=== PATIENT | female | born 1945 | race Caucasian/White ===

== ENCOUNTER 2017-06-25 17:38 | Inpatient (IN) ==
[2017-06-25] MEDS ORDERED: Piperacillin/Tazobactam 3.375 GM in Water for inj. (sterile) 20 ML IVP ONE (17:49)
[2017-06-25] MEDS ORDERED: Vancomycin 1,250 MG in D5% in Water 250 ML IVPB ONE (17:49)
[2017-06-25] MEDS ORDERED: 0.9 % Sodium Chloride 1,000 ML IVC ONE (17:49)
[2017-06-25] MEDS ORDERED: Levofloxacin 750 MG/150 ML 750 MG/150 ML BAG IVPB ONE (17:49)
--- NOTE | 2017-06-25 17:58 | Emergency Department Note ---
Disposition Clinical Impression: Neutropenic fever Nausea and vomiting Qualifiers: Vomiting type: unspecified Vomiting Intractability: non-intractable Qualified Code(s): R11.2 - Nausea with vomiting, unspecified Fatigue Qualifiers: Fatigue type: unspecified Qualified Code(s): R53.83 - Other fatigue Disposition: Admitted As Inpatient Condition: Fair Time of Disposition: 20:25 General Adult HPI - General Stated complaint: Fever/Vomiting Time Seen by Provider: 06/25/17 17:41 Nursing Notes Reviewed: Yes Vital Signs Reviewed: Yes - History of Present Illness HPI Narrative: Mrs. Heredia, 72-year-old female, presents from home for evaluation of fever, nausea, vomiting 1 (bloody, nonbilious), increased fatigue with light exertion , mild dyspnea with light exertion. Symptom onset this morning. Tmax 102.1F by mouth this morning, improved with Tylenol. Currently under evaluation for Leukemia. Last WBC 1.05. Followed by the [facility] Dr. Fannie. Currently under initial work-up; no treatments or therapies initiated at this time. 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 PMH: Hypertension, hyperlipidemia, diabetes. History of breast cancer. History of uterine cancer-status post hysterectomy and chemotherapy. ROS: Positive: Fever, nausea, vomiting, fatigue, dyspnea excellent Negative: Chills, chest pains, palpitations, abdominal pains, dysuria, changes in bowel habits, headache, changes in vision, lightheadedness or vertigo - Related Data Home Medications Medication Instructions Recorded Confirmed Anastrozole [Arimidex] 1 mg PO DAILY 04/06/15 06/25/17 Aspirin Enteric Coated [Aspirin EC] 81 mg PO DAILY 04/06/15 06/25/17 Cholecalciferol (Vitamin D3) 2,000 unit PO DAILY 04/06/15 06/25/17 [Vitamin D3] GlipiZIDE XL (24 HR) [Glucotrol XL] 10 mg PO 0800 04/06/15 06/25/17 Hydrochlorothiazide 25 mg PO DAILY 04/06/15 06/25/17 Liraglutide [Victoza 2-Evans] 1.8 mg SQ DAILY 04/06/15 06/25/17 Metformin [Glucophage] 1,000 mg PO BIDWM 10/27/15 01/15/18 Simvastatin [Zocor] 40 mg PO HS 04/06/15 06/25/17 Multivit/Iron/FA/K/Herb No.244 1 each PO DAILY 05/25/17 06/25/17 [Alive Women's Energy Mv Tablet] Metoprolol XL (24 HR) Succ [Toprol 25 mg PO DAILY 06/25/17 06/25/17 XL] Allergies Allergy/AdvReac Type Severity Reaction Status Date / Time ibuprofen Allergy Unknown Gastrointestinal Verified 06/06/17 11:45 Upset Sulfa (Sulfonamide Allergy Unknown Gastrointestinal Verified 06/06/17 11:45 Antibiotics) Upset All systems ED: reviewed and negative except as stated. Review of Systems: As Per HPI Past Medical History - Past Medical History Medical history: Reports: arthritis, cancer, DVT, diabetes, hyperlipidemia, hypertension, kidney stones Surgical history: Reports: breast surgery, cancer surgery, hysterectomy, other Psychiatric history: Reports: no psych history - Social History Smoking Status: Never smoker Smokeless Tobacco Status: No Alcohol use: Reports: none Drug use: Reports: none Physical Exam Vital Signs Reviewed General: Patient is alert, oriented, and in no acute distress. HEENT: No facial asymmetry. Head is normocephalic and atraumatic. PERRLA, EOMI. Cardiovascular: Heart regular rate and rhythm without clicks, rubs, gallops, or murmurs. No JVD. PMI nondisplaced. Respiratory: Symmetric chest rise with good respiratory effort. Bilateral breath sounds are clear without wheezing, crackles, or rhonchi. Abdomen: Obese. Bowel sounds present normoactive x-4 quadrants. Abdomen is soft, nondistended, and nontender. Unable to assess organomegaly secondary to patient's body habitus. Musculoskeletal: Spontaneously moving all extremities. Neuro: Cranial nerves II through XII without gross deficit. Sensation light touch intact. Psych: Patient's affect is appropriate for situation. Course Course Narrative: Initial concern is for fever in the context of leukopenia. One month ago, patient's white count was 0.8. She had pancytopenia at that time. Patient is seen as positive by temperature and respiratory rate. In the context of her leukopenia, will proceed aggressively with empiric antibotic coverage and thorough workup. Patient's white count is 0.6. Patient has hypomagnesemia; will replace. Patient has hypokalemia; will replace. Patient is influenza negative. Calculated absolute neutrophil count is 13,000; however she is neutropenic with WBC of 600. Discussed the patient with Dr. Otero, oncology. Given the patient's pancytopenia and neutropenic fever, he is in agreement with getting the patient to hospitalist service. He recommends empiric cefepime and appear Tamiflu at this time. Discussed the patient with the admitting hospitalist, Dr. Chapman, recent except the patient to her service. We discussed current vancomycin and Zosyn as well as Dr. Garcia's recommendations for cefepime. She has no additional questions or concerns this time. I discussed the above with the patient was agreement to admission to this facility for continued evaluation and management. Neutropenic cautions are in place. Vital Signs Temperature 100.8 F H 06/25/17 17:47 Pulse Rate 98 06/25/17 17:47 Respiratory Rate 20 06/25/17 17:47 Blood Pressure 136/62 06/25/17 17:47 O2 Sat by Pulse Oximetry 97 06/25/17 17:47 Temperature 100.8 F H 06/25/17 17:47 Pulse Rate 98 06/25/17 19:15 Respiratory Rate 18 06/25/17 19:15 Blood Pressure 137/56 06/25/17 19:15 O2 Sat by Pulse Oximetry 93 06/25/17 19:15 Oxygen Delivery Oxygen Delivery Room Air Medical Decision Making - Medical Records Medical records reviewed: Yes I reviewed the patient's medical records. - Lab Data Lab results reviewed: Yes I reviewed the patient's lab results. Result diagrams: 06/25/17 18:03 06/25/17 18:03 Lab Results 06/25/17 06/25/17 06/25/17 Range/Units 18:03 18:03 18:03 WBC 0.6 L* (4.3-11.1) K/mcL RBC 2.02 L (3.82-4.97) M/mcL Hgb 7.2 L (11.5-15.4) g/dL Hct 20.2 L (35.3-44.9) % MCV 100.0 (83.0-100.0) fL MCH 35.6 H (28.0-33.3) pg MCHC 35.6 H (31.6-35.5) g/dL RDW 17.2 H (11.5-14.5) % Plt Count 94 L (140-400) K/mcL MPV 10.2 (9.4-12.4) fL Seg Neutrophils % 6.0 % Band Neutrophils % 2.0 (0-4) % Lymphocytes % 86.0 % Monocytes % 6.0 % Neutrophils # 0.1 L (1.6-8.9) K/mcL Lymphocytes # 0.5 L (0.6-4.6) K/mcL Monocytes # 0.0 (0.0-1.3) K/mcL Nucleated RBCs/100 WBC 4.8 H (0) /100 WBC Reactive Lymphocytes Present A (Not Present) Platelet Estimate Decreased L (Normal) Hypochromasia Present A (Not Present) Anisocytosis 1+ A (Not Present) Microcytosis Present A (Not Present) Macrocytosis Present A (Not Present) Ovalocytes 1+ A (Not Present) PT 12.2 H (9.4-12.1) Seconds INR 1.1 APTT 27.7 (26.0-36.0) Seconds Sodium 135 L (136-145) mEq/L Potassium 3.1 L (3.5-5.1) mEq/L Chloride 100 (98-107) mEq/L Carbon Dioxide 26 (23-29) mEq/L BUN 15 (8-23) mg/dL Creatinine 0.97 (0.60-1.20) mg/dL Est GFR ( Amer) > 60 (> 60) Est GFR (Non-Af Amer) 56 L (> 60) BUN/Creatinine Ratio 15 (6-26) Glucose 276 H (70-105) mg/dL Calculated Osmolality 291 (280-300) Lactic Acid (0.5-2.2) mmol/L Calcium 8.7 (8.6-10.3) mg/dL Phosphorus 1.6 L (2.7-4.5) mg/dL Magnesium 1.5 L (1.6-2.6) mg/dL Total Bilirubin 1.5 H (0.3-1.0) mg/dL Direct Bilirubin 0.4 H (0.0-0.2) mg/dL Indirect Bilirubin 1.1 (0.0-1.2) mg/dL AST 20 (13-39) Units/L ALT 23 (7-52) Units/L Alkaline Phosphatase 81 (34-104) Units/L Troponin I (< 0.04) ng/mL B-Natriuretic Peptide (Less than 100) pg/mL Serum Total Protein 6.4 (6.4-8.9) g/dL Albumin 3.5 (3.5-5.7) g/dL Globulin 2.9 (2.4-3.5) g/dL Albumin/Globulin Ratio 1.2 (1.1-2.2) TSH 1.042 (0.340-5.600) mcIU/mL Urine Color (Yellow) Urine Clarity (Clear) Urine pH (5.0-8.0) pH Units Ur Specific Hinckley (1.010-1.025) Urine Protein (Neg-Trace) mg/dL Urine Glucose (UA) (Normal) mg/dL Urine Ketones (Negative) mg/dL Urine Blood (Negative) Urine Nitrite (Negative) Urine Bilirubin (Negative) Urine Urobilinogen (Normal) mg/dL Ur Leukocyte Esterase (Negative) Urine Microscopic RBC (0-3) per hpf Urine Microscopic WBC (0-3) per hpf Ur Squamous Epith Cells (None-Few) per lpf Urine Bacteria (None-Few) per hpf Hyaline Casts (None-Few) per lpf Ur Culture Indicated? (NO) 06/25/17 06/25/17 06/25/17 Range/Units 18:03 18:03 18:03 WBC (4.3-11.1) K/mcL RBC (3.82-4.97) M/mcL Hgb (11.5-15.4) g/dL Hct (35.3-44.9) % MCV (83.0-100.0) fL MCH (28.0-33.3) pg MCHC (31.6-35.5) g/dL RDW (11.5-14.5) % Plt Count (140-400) K/mcL MPV (9.4-12.4) fL Seg Neutrophils % % Band Neutrophils % (0-4) % Lymphocytes % % Monocytes % % Neutrophils # (1.6-8.9) K/mcL Lymphocytes # (0.6-4.6) K/mcL Monocytes # (0.0-1.3) K/mcL Nucleated RBCs/100 WBC (0) /100 WBC Reactive Lymphocytes (Not Present) Platelet Estimate (Normal) Hypochromasia (Not Present) Anisocytosis (Not Present) Microcytosis (Not Present) Macrocytosis (Not Present) Ovalocytes (Not Present) PT (9.4-12.1) Seconds INR APTT (26.0-36.0) Seconds Sodium (136-145) mEq/L Potassium (3.5-5.1) mEq/L Chloride (98-107) mEq/L Carbon Dioxide (23-29) mEq/L BUN (8-23) mg/dL Creatinine (0.60-1.20) mg/dL Est GFR ( Amer) (> 60) Est GFR (Non-Af Amer) (> 60) BUN/Creatinine Ratio (6-26) Glucose (70-105) mg/dL Calculated Osmolality (280-300) Lactic Acid 2.0 (0.5-2.2) mmol/L Calcium (8.6-10.3) mg/dL Phosphorus (2.7-4.5) mg/dL Magnesium (1.6-2.6) mg/dL Total Bilirubin (0.3-1.0) mg/dL Direct Bilirubin (0.0-0.2) mg/dL Indirect Bilirubin (0.0-1.2) mg/dL AST (13-39) Units/L ALT (7-52) Units/L Alkaline Phosphatase (34-104) Units/L Troponin I < 0.03 (< 0.04) ng/mL B-Natriuretic Peptide 50 (Less than 100) pg/mL Serum Total Protein (6.4-8.9) g/dL Albumin (3.5-5.7) g/dL Globulin (2.4-3.5) g/dL Albumin/Globulin Ratio (1.1-2.2) TSH (0.340-5.600) mcIU/mL Urine Color (Yellow) Urine Clarity (Clear) Urine pH (5.0-8.0) pH Units Ur Specific Hinckley (1.010-1.025) Urine Protein (Neg-Trace) mg/dL Urine Glucose (UA) (Normal) mg/dL Urine Ketones (Negative) mg/dL Urine Blood (Negative) Urine Nitrite (Negative) Urine Bilirubin (Negative) Urine Urobilinogen (Normal) mg/dL Ur Leukocyte Esterase (Negative) Urine Microscopic RBC (0-3) per hpf Urine Microscopic WBC (0-3) per hpf Ur Squamous Epith Cells (None-Few) per lpf Urine Bacteria (None-Few) per hpf Hyaline Casts (None-Few) per lpf Ur Culture Indicated? (NO) 06/25/17 Range/Units 19:10 WBC (4.3-11.1) K/mcL RBC (3.82-4.97) M/mcL Hgb (11.5-15.4) g/dL Hct (35.3-44.9) % MCV (83.0-100.0) fL MCH (28.0-33.3) pg MCHC (31.6-35.5) g/dL RDW (11.5-14.5) % Plt Count (140-400) K/mcL MPV (9.4-12.4) fL Seg Neutrophils % % Band Neutrophils % (0-4) % Lymphocytes % % Monocytes % % Neutrophils # (1.6-8.9) K/mcL Lymphocytes # (0.6-4.6) K/mcL Monocytes # (0.0-1.3) K/mcL Nucleated RBCs/100 WBC (0) /100 WBC Reactive Lymphocytes (Not Present) Platelet Estimate (Normal) Hypochromasia (Not Present) Anisocytosis (Not Present) Microcytosis (Not Present) Macrocytosis (Not Present) Ovalocytes (Not Present) PT (9.4-12.1) Seconds INR APTT (26.0-36.0) Seconds Sodium (136-145) mEq/L Potassium (3.5-5.1) mEq/L Chloride (98-107) mEq/L Carbon Dioxide (23-29) mEq/L BUN (8-23) mg/dL Creatinine (0.60-1.20) mg/dL Est GFR ( Amer) (> 60) Est GFR (Non-Af Amer) (> 60) BUN/Creatinine Ratio (6-26) Glucose (70-105) mg/dL Calculated Osmolality (280-300) Lactic Acid (0.5-2.2) mmol/L Calcium (8.6-10.3) mg/dL Phosphorus (2.7-4.5) mg/dL Magnesium (1.6-2.6) mg/dL Total Bilirubin (0.3-1.0) mg/dL Direct Bilirubin (0.0-0.2) mg/dL Indirect Bilirubin (0.0-1.2) mg/dL AST (13-39) Units/L ALT (7-52) Units/L Alkaline Phosphatase (34-104) Units/L Troponin I (< 0.04) ng/mL B-Natriuretic Peptide (Less than 100) pg/mL Serum Total Protein (6.4-8.9) g/dL Albumin (3.5-5.7) g/dL Globulin (2.4-3.5) g/dL Albumin/Globulin Ratio (1.1-2.2) TSH (0.340-5.600) mcIU/mL Urine Color Yellow (Yellow) Urine Clarity Clear (Clear) Urine pH 6.0 (5.0-8.0) pH Units Ur Specific Hinckley > 1.030 H (1.010-1.025) Urine Protein 100 H (Neg-Trace) mg/dL Urine Glucose (UA) >=1000 H (Normal) mg/dL Urine Ketones 15 H (Negative) mg/dL Urine Blood Negative (Negative) Urine Nitrite Negative (Negative) Urine Bilirubin Negative (Negative) Urine Urobilinogen Normal (Normal) mg/dL Ur Leukocyte Esterase Negative (Negative) Urine Microscopic RBC 0-3 (0-3) per hpf Urine Microscopic WBC 0-3 (0-3) per hpf Ur Squamous Epith Cells Many H (None-Few) per lpf Urine Bacteria None Seen (None-Few) per hpf Hyaline Casts None Seen (None-Few) per lpf Ur Culture Indicated? NO (NO) - Radiology Data Radiology results reviewed: Yes I reviewed the patient's radiology results. - EKG Data EKG #1 EKG attestation: Yes I reviewed and interpreted this EKG. EKG results narrative: EKG dated 06/30/1816: 55 interpreted as sinus rhythm with a rate of 97. Normal intervals appear 134, QRS 80, QT/QTC 326/81. Normal axis. Nonspecific ST-T changes. Inverted P wave in V1 and V2 present on comparison EKG dated 06/2012; no acute ischemic changes a comparison. Critical Care Time Critical Care Time: Yes Total Critical Care Time: 45 Attestation: Critical care performed: Time is exclusive of separately billable procedures. Time includes: direct patient care, patient reassessment, coordination of patient care, interpretation of data (laboratory data, radiology data, and respiratory data), review of patient's medical records, medical consultation and documentation of patient care. Procedures included in critical care time: Procedures excluded from critical care time: Attestation Statement - Attestation Attestation: I, Aguilar Toussaint DO, examined this patient [id number] and my medical decision-making was reviewed with Dr. William Rayo, Resident Physician. I agree with the documented findings, disposition and treatment plan as described except to the extent set forth below. Please see my progress notes for details. 72-year-old female with known history of uterine cancer. Patient was diagnosed treated with surgical hysterectomy and chemotherapy within the last year. She has chronic leukopenia and borderline pancytopenia based on lab review. She confirms a fever of 102.1 at home. Patient is concerning for possible neutropenic fever of unknown etiology at this point. She has had nausea but denies any productive cough or sputum abdominal pain and burning with urination or otherwise infectious etiology symptoms. Patient will be aggressively treated with fluid hydration and antibiotic regimen started this time she will have blood cultures and urinalysis and chest x-ray ordered immediately along with EKG. She will also have evaluation of liver function testing. She will CT imaging of the head CT angiography of the chest and CT with IV contrast of the abdomen once wanted by laboratory workup. Patient and the family about informed. Influenza swab will be collected. Clinical presentation is otherwise unremarkable. Patient is resting in the bed her vital signs are stable. She is febrile at 100.8 here in the emergency room. She is alert she is oriented she is speaking in full sentences. She does not appear to be in any distress and does not have any focal signs of neurologic deficit or symptoms. Lungs are clear heart is regular abdomen soft nontender nondistended with no guarding no rigidity and no peritoneal like symptoms. She has no signs of petechial lesions rashes or breakdown of the skin at this point. The daughter did say that on her posterior aspect of her back with the bone marrow biopsy she does have some redness according to the family will evaluate to make sure there is no signs of fluctuant abscess. Disposition will most likely readmission after consultation placed out to the on-call oncologist as well as workup and imaging modalities are completed. Patient is comfortable with this point. Physical exam completed and unremarkable. See detailed documentation of his physical exam, medical intervention, medical decision-making, disposition and the resident physician's note. 1999 CT scan of the chest and abdomen are still pending. CT of the head is still pending. Patient has been stable throughout the entire course of care here. Consultation placed with the on-call oncologist Dr. Otero, the recommended treating such that the patient has [place]. [place] [id number]. Patient is out of them provided with vancomycin, Zosyn, Levaquin. They recommended adding on cefepime. We did not give Zosyn. We continued with scheduled treatment. Patient second IV placed just for IV access secondary to multiple antibiotics. Otherwise patient is stable. Admission process will be completed. Family informed. Approximately 45 minutes of critical care was applied to this patient's treatment course
[2017-06-25 18:13] LABS: Mean Platelet Volume 10.2 fL (9.4-12.4); Red Cell Distribution Width 17.2 % (11.5-14.5)
[2017-06-25 18:15] LABS: Hematocrit 20.2 % (35.3-44.9); Mean Corpuscular HGB Conc 35.6 g/dL (31.6-35.5); Mean Corpuscular Hemoglobin 35.6 pg (28.0-33.3); Nucleated Red Blood Cells 4.8 /100 WBC (0); Red Blood Count 2.02 M/mcL (3.82-4.97)
[2017-06-25 18:29] LABS: Alanine Aminotransferase 23 Units/L (7-52); Albumin 3.5 g/dL (3.5-5.7); Albumin/Globulin Ratio 1.2 (1.1-2.2); Alkaline Phosphatase 81 Units/L (34-104); Aspartate Amino Transferase 20 Units/L (13-39); BUN/Creatinine Ratio 15 (6-26); Bilirubin,Direct 0.4 mg/dL (0.0-0.2); Bilirubin,Indirect 1.1 mg/dL (0.0-1.2); Bilirubin,Total 1.5 mg/dL (0.3-1.0); Blood Urea Nitrogen 15 mg/dL (8-23); Calcium 8.7 mg/dL (8.6-10.3); Carbon Dioxide 26 mEq/L (23-29); Chloride 100 mEq/L (98-107); Globulin 2.9 g/dL (2.4-3.5); Glucose 276 mg/dL (70-105); Magnesium 1.5 mg/dL (1.6-2.6); Osmolality,Calculated 291 (280-300); Phosphorous 1.6 mg/dL (2.7-4.5); Potassium 3.1 mEq/L (3.5-5.1); Sodium 135 mEq/L (136-145); Total Protein 6.4 g/dL (6.4-8.9); eGFR For African Americans > 60 (> 60); eGFR For Non-African Americans 56 (> 60)
[2017-06-25 18:32] LABS: INR 1.1; Prothrombin Time 12.2 Seconds (9.4-12.1)
[2017-06-25 18:35] LABS: Activated Partial Thrombo Time 27.7 Seconds (26.0-36.0)
[2017-06-25 18:41] LABS: Hemoglobin 7.2 g/dL (11.5-15.4); Platelet Count 94 K/mcL (140-400)
[2017-06-25] MEDS ORDERED: Ondansetron 4 MG/2 ML VIAL IVP ONE (18:44)
[2017-06-25 18:55] LABS: Anisocytosis 1+ (Not Present); Lymphocytes # 0.5 K/mcL (0.6-4.6); Macrocytosis Present (Not Present); Microcytosis Present (Not Present); Neutrophils # 0.1 K/mcL (1.6-8.9); Reactive Lymphocytes Present (Not Present)
[2017-06-25 18:57] LABS: Hypochromasia Present (Not Present); Ovalocytes 1+ (Not Present)
[2017-06-25 18:58] LABS: Platelet Estimate Decreased (Normal)
[2017-06-25 19:10] LABS: Thyroid Stimulating Hormone 1.042 mcIU/mL (0.340-5.600)
[2017-06-25 19:27] LABS: Bilirubin,Urine Negative (Negative); Blood,Urine Negative (Negative); Clarity,Urine Clear (Clear); Color,Urine Yellow (Yellow); Glucose,Urine (UA) >=1000 mg/dL (Normal); Ketones,Urine 15 mg/dL (Negative); Leukocyte Esterase,Urine Negative (Negative); Nitrite,Urine Negative (Negative); Protein,Urine 100 mg/dL (Neg-Trace); Specific Gravity,Urine > 1.030 (1.010-1.025); Urobilinogen,Urine Normal (Normal)
[2017-06-25 19:29] LABS: Bacteria,Urine None Seen per hpf (None-Few); Hyaline Casts,Urine None Seen per lpf (None-Few); RBC,Urine 0-3 per hpf (0-3); Squamous Epithelial Cell,Urine Many per lpf (None-Few); WBC,Urine 0-3 per hpf (0-3)
[2017-06-25] MEDS ORDERED: *HR* HYDROcodone/Acet 5/325 mg TABLET PO PRN (20:49)
[2017-06-25] MEDS ORDERED: *HR* Morphine 2 MG/ML SYRINGE IVP PRN (20:49)
[2017-06-25] MEDS ORDERED: Ondansetron 4 MG/2 ML VIAL IVP PRN (20:49)
[2017-06-25] MEDS ORDERED: Naloxone 0.4 MG/ML INJ IVP PRN (20:49)
[2017-06-25] MEDS ORDERED: *HR* Dextrose 50 % in Water (Syg) 50 ML SYRINGE IVP PRN (20:53)
[2017-06-25] MEDS ORDERED: D5% in Water 1,000 ML IVC PRN (20:53)
[2017-06-25] MEDS ORDERED: Dextrose Gel 15 GM/37.5 ML TUBE PO PRN ×2 (20:53)
[2017-06-25] MEDS ORDERED: Insulin LISPRO 300 UNITS/3 ML VIAL SQ SCH (21:00)
[2017-06-25] MEDS: 0.9 % Sodium Chloride 1,000 ML IVC SCH (22:11)
[2017-06-25 23:35] LABS: Adenovirus Not Detected (Not Detect); Bordetella Pertussis Not Detected (Not Detect); Chlamydophila pneumoniae Not Detected (Not Detect); Coronavirus 229E Not Detected (Not Detect); Coronavirus HKU1 Not Detected (Not Detect); Coronavirus NL63 Not Detected (Not Detect); Coronavirus OC43 Not Detected (Not Detect); Human Metapneumovirus Not Detected (Not Detect); Human Rhinovirus/Enterovirus Not Detected (Not Detect); Influenza A Subtype 2009 H1 Not Detected (Not Detect); Influenza A Untypeable Not Detected (Not Detect); Influenza B Not Detected (Not Detect); Mycoplasma pneumoniae Not Detected (Not Detect); Parainfluenza Virus 1 Not Detected (Not Detect); Parainfluenza Virus 2 Not Detected (Not Detect); Parainfluenza Virus 3 Not Detected (Not Detect); Parainfluenza Virus 4 Not Detected (Not Detect); Respiratory Syncytial Virus Not Detected (Not Detect)
--- NOTE | 2017-06-26 00:05 | Internal Med History&Physical ---
Date of Encounter: 06/25/17 Time of Encounter: 20:45 Assessment and Plan (1) Neutropenic fever Current visit: Yes Status: Acute Will continue broad spectrum IV abx (Vancomycin and Cefepime) f/u blood cultures CXR/UA negative for any infectious etiology Acetaminophen prn fever closely monitor neutropenic precautions Oncology evaluation requested (2) Pancytopenia Current visit: Yes Status: Acute secondary to underlying malignancy continue to closely monitor Transfuse for Hgb<7 closely monitor PLT count SCD for dvt ppx (3) Leukemia Current visit: Yes Status: Chronic oncology evaluation requested Qualifiers: Leukemia type: unspecified Leukemia Active/Remission status: without remission Qualified Code(s): C95.90 - Leukemia, unspecified not having achieved remission (4) CAD (coronary artery disease) Current visit: No Status: Chronic no signs of angina present continue home meds given complains of exertional dyspnea, will obtain 2D echo Qualifiers: Coronary Disease-Associated Artery/Lesion type: andreafski artery [facility] vs. transplanted heart: andreafski heart Associated angina: without angina Qualified Code(s): I25.10 - Atherosclerotic heart disease of andreafski coronary artery without angina pectoris (5) Diabetes mellitus type II, non insulin dependent Current visit: No Status: Chronic hold oral antihyperglycemic agents sliding scale insulin algorithm monitor FS and BG ADA diet (6) DVT prophylaxis Current visit: No Status: Acute SCD (7) HLD (hyperlipidemia) Current visit: No Status: Chronic continue home meds Qualifiers: Hyperlipidemia type: unspecified Qualified Code(s): E78.5 - Hyperlipidemia , unspecified (8) Obesity (BMI 30-39.9) Current visit: No Status: Chronic (9) Hypertension Current visit: Yes Status: Acute BP within acceptable range continue home medications Qualifiers: Hypertension type: essential hypertension Qualified Code(s): I10 - Essential (primary) hypertension Internal Medicine - H&P: HPI Chief complaint: generalized weakness, fever Admitted From: Home Plans for Post Hospital Care: Home History of present illness: Ms. Heredia is a 72 year old female with PMH Of AML, breast ca/endometrial ca s/p chemotherapy in October 2015, DM, HTN, HLD, CAD who presented to the ER for worsening generalized weakness, exertional dyspnea, and fever. She reports of having fevers for the last two days along with worsening generalized weakness. Reports of having exertional dyspnea for the last few weeks. Denies any cough, runny nose, no ill contacts. Upon arrival to the ER, she was noted to be pancytopenic and a Tmax of 100.8. She was started on broad spectrum IV abx in the ER. She is currently resting in bed and reports of feeling weak but no shortness of breath at rest. Pt has been afebrile after receiving acetaminophen in the ER. Oncology has been consulted by the ER physician. Social history: never smoker Past Med Surg Social Fam HX - Past Medical History Medical history: arthritis, cancer, DVT, diabetes, hyperlipidemia, hypertension , kidney stones Psychiatric history: no psych history - Past Surgical History Surgical History: breast surgery, cancer surgery, hysterectomy, other - Social History Smoking Status: Never smoker Smokeless Tobacco Status: No Alcohol use: none Drug use: none - Family History Mother Living Status: Hx Family Cancer: Yes (Uterine Cancer) Father Living Status: Hx Family Cardiac Disorders: Yes Hx Family Cancer: Yes (Lung cancer) Internal Medicine - H&P: Meds Anastrozole [Arimidex] 1 mg PO DAILY 04/06/15 [History] Aspirin Enteric Coated [Aspirin EC] 81 mg PO DAILY 04/06/15 [History] Cholecalciferol (Vitamin D3) [Vitamin D3] 2,000 unit PO DAILY 04/06/15 [History] GlipiZIDE XL (24 HR) [Glucotrol XL] 10 mg PO 0800 04/06/15 [History] Hydrochlorothiazide 25 mg PO DAILY 04/06/15 [History] Liraglutide [Victoza 2-Evans] 1.8 mg SQ DAILY 04/06/15 [History] Metformin [Glucophage] 1,000 mg PO BIDWM 04/06/15 [History] Simvastatin [Zocor] 40 mg PO HS 04/06/15 [History] Multivit/Iron/FA/K/Herb No.244 [Alive Women's Energy Mv Tablet] 1 each PO DAILY 05/25/17 [History] Metoprolol XL (24 HR) Succ [Toprol XL] 25 mg PO DAILY 06/25/17 [History] 3 Allergy/AdvReac Type Severity Reaction Status Date / Time ibuprofen Allergy Unknown Gastrointestinal Verified 06/06/17 11:45 Upset Sulfa (Sulfonamide Allergy Unknown Gastrointestinal Verified 06/06/17 11:45 Antibiotics) Upset All Systems PM: A 10-system review of systems was performed and is negative for pertinent findings except as documented above in the HPI. - Constitutional Constitutional: as per HPI - Constitutional Vitals: Temp Pulse Resp BP Pulse Ox 98.1 F 86 17 107/61 97 06/25/17 23:36 06/25/17 23:36 06/25/17 23:36 06/25/17 23:36 06/25/17 23:36 General appearance: Present: cooperative, A&O X 3, pleasant, no acute distress, obese, answers questions appropriately - Head Head exam: Present: atraumatic, normocephalic - Eye Eye exam: Present: conjuntiva pink, sclera anicteric - Respiratory Respiratory exam: Present: CTAB. Absent: respiratory distress, wheezes - Cardiovascular Cardiovascular exam: Present: RRR, +S1, +S2. Absent: diastolic murmur, gallop, rubs, systolic murmur - GI/Abdominal GI/Abdominal exam: Present: normal bowel sounds, soft, no peritoneal signs. Absent: distended, tenderness - Extremities Exam Extremities exam: Present: warm, radial pulses palpable and symmetrical. Absent : calf tenderness, cyanotic, pedal edema - Neurological Exam Neurological exam: Present: alert, oriented X3 Internal Med - H&P Results - Labs CBC & Chem 7: 06/25/17 18:03 06/25/17 18:03
[2017-06-26] MEDS: Cefepime HCl 1,000 MG in Water for inj. (sterile) 20 ML 10 ML IVP SCH ×2 (00:28→09:21)
[2017-06-26 05:34] LABS: Eosinophils % 0.9 %; Hemoglobin 6.1 g/dL (11.5-15.4)
[2017-06-26 05:35] LABS: Hematocrit 17.1 % (35.3-44.9); Immature Granulocytes % 8.8 % (0-4); Lymphocytes # 0.6 K/mcL (0.6-4.6); Lymphocytes % 54.9 %; Mean Corpuscular HGB Conc 35.7 g/dL (31.6-35.5); Mean Corpuscular Hemoglobin 35.9 pg (28.0-33.3); Mean Corpuscular Volume 100.6 fL (83.0-100.0); Mean Platelet Volume 10.7 fL (9.4-12.4); Monocytes # 0.3 K/mcL (0.0-1.3); Monocytes % 27.4 %; Neutrophils # 0.1 K/mcL (1.6-8.9); Nucleated Red Blood Cells 3.5 /100 WBC (0); Red Cell Distribution Width 17.3 % (11.5-14.5)
[2017-06-26 05:41] LABS: Platelet Count 80 K/mcL (140-400)
[2017-06-26 05:53] LABS: Magnesium 2.2 mg/dL (1.6-2.6); Phosphorous 2.8 mg/dL (2.7-4.5)
[2017-06-26 06:11] LABS: Anisocytosis 2+ (Not Present); Macrocytosis Present (Not Present); Platelet Estimate Decreased (Normal); Poikilocytosis 1+ (Not Present); Polychromasia 1+ (Not Present); Reactive Lymphocytes Present (Not Present)
[2017-06-26] MEDS ORDERED: Anastrozole 1 MG TABLET PO SCH (09:00)
[2017-06-26] MEDS ORDERED: Aspirin Enteric Coated 81 MG Tablet PO SCH (09:00)
[2017-06-26] MEDS ORDERED: (Liraglutide [Victoza 2-Pak] 1.8 MG) SQ SCH (09:00)
[2017-06-26] MEDS ORDERED: Metoprolol XL (24 HR) Succ 25 MG TAB.ER.24H PO SCH (09:00)
[2017-06-26] MEDS ORDERED: Oseltamivir Phosphate 30 MG CAPSULE PO SCH (09:00)
[2017-06-26] MEDS ORDERED: Cholecalciferol (D-3) 1,000 UNIT TABLET PO SCH (09:00)
[2017-06-26] MEDS ORDERED: Multivit/Ca/Min/Fe/FA 1 TAB TABLET PO SCH (09:00)
[2017-06-26] MEDS ORDERED: hydroCHLOROthiazide 25 MG TABLET PO SCH (09:00)
[2017-06-26] MEDS: 0.9 % Sodium Chloride 1,000 ML IVC SCH (09:22)
[2017-06-26] MEDS: Insulin LISPRO 300 UNITS/3 ML VIAL SQ SCH ×3 (09:24→16:31)
[2017-06-26] MEDS ORDERED: Vancomycin 1,250 MG in D5% in Water 250 ML IVPB SCH (10:00)
--- NOTE | 2017-06-26 11:13 | Electrocardiograph Report ---
[address] [place] [address] Test Date: 2017-06-25 Pat Name: Rut Heredia Department: 104 Room: 3A42 Gender: F Consolidator: : 1945 Requested By: William Rayo Order Number: [id number] Reading MD: Arcadio Hernandez MD Measurements Intervals Rex Rate: 97 P: 64 MO: 134 QRS: 24 QRSD: 80 T: 40 QT: 326 QTc: 381 Interpretive Statements SINUS RHYTHM LEFT ATRIAL ENLARGEMENT Electronically Signed On 06-26-2017 11:11:34 EST by Arcadio Hernandez MD
[2017-06-26 12:04] LABS: Hematocrit 17.7 % (35.3-44.9); Hemoglobin 6.3 g/dL (11.5-15.4)
[2017-06-26 15:00] LABS: BUN/Creatinine Ratio 13 (6-26); Blood Urea Nitrogen 11 mg/dL (8-23); Calcium 8.2 mg/dL (8.6-10.3); Carbon Dioxide 27 mEq/L (23-29); Chloride 107 mEq/L (98-107); Glucose 196 mg/dL (70-105); Osmolality,Calculated 293 (280-300); Potassium 3.5 mEq/L (3.5-5.1); Sodium 139 mEq/L (136-145); eGFR For African Americans > 60 (> 60); eGFR For Non-African Americans > 60 (> 60)
[2017-06-26 15:38] VITALS: BP 114/68
--- NOTE | 2017-06-26 15:42 | Oncology Inp Consult Note ---
<Bessy George - Last Filed: 06/26/17 16:44> Date of Encounter: 06/26/17 Time of Encounter: 13:00 Assessment and Plan (1) Leukemia Status: Chronic Assessment and plan: BM bx--by flow numerous blasts consistent with ac leukemia, immunophenotype matching APL, not typical morphology-FISH (15;17) awaited. Patient of Dr. Llamas, referred to Dr. Toro at [facility] for AML management and further work up. She attended first appointment with Dr. Toro last week. She has recently been accepted as appropriate candidate for [facility] clinical trial study with Vero. Dr. Otero has discussed transfer to [facility], Dr. Fannie Toro has accepted transfer. Currently awaiting bed placement, [facility] will notify unit when bed available. Discussed transfer with Dr. Middleton, attending, who is aware of plan and will assist with transfer. May hold off on PRBC transfusion, pending her transfer to [facility] so as to not hold up her transfer. Shall her transfer some reason not happen for any extended period of time with no beds available, she may receive Leukoreduced and Irradiated PRBC. Admitted with Neutropenic Fever, pancytopenic, WBC 1.1, hgb 6.3, platelets 80, neutrophil 0.1. Chest CTA, Head CT no acute abnormality. No source of infection identified at this time. Treating with broad spectrum ATB, cefepime/vanco. Please refer to Dr. Otero's attending attestation below for further details. Qualifiers: Leukemia type: unspecified Leukemia Active/Remission status: without remission Qualified Code(s): C95.90 - Leukemia, unspecified not having achieved remission - Data of Consult Patient: known to practice within the last 3 years Consult date: 06/26/17 Requesting Physician: Yovany Middleton [facility] Consult Narrative Reason for consult: AML History of present illness: Ms. Heredia is a 72 year old female with past medical history significant for AML , breast ca/endometrial ca s/p chemotherapy in October 2015, DM, HTN, HLD, CAD. Patient of Dr. Llamas, recently referred to Dr. Fannie Toro at [facility] for AML management and further work up. Presented to ER for weakness, exertional dyspnea, and fever for 2 days Tmax 100.8 in ER, Tmax 102.1 prior to presentation. Admitted with Neutropenic Fever, pancytopenic, WBC 1.1, hgb 6.3, platelets 80, neutrophil 0.1. Lactic acid normal , BP stable. On Vancomycin/cefepime. Chest CTA, Head CT no acute abnormality. Blood cultures pending. Influenza negative. Past Med Surg Social Fam HX - Past Medical History Medical history: arthritis, cancer, DVT, diabetes, hyperlipidemia, hypertension , kidney stones Psychiatric history: no psych history - Past Surgical History Surgical History: breast surgery, cancer surgery, hysterectomy, other - Social History Smoking Status: Never smoker Smokeless Tobacco Status: No Alcohol use: none Drug use: none - Family History Mother Living Status: Hx Family Cancer: Yes (Uterine Cancer) Father Living Status: Hx Family Cardiac Disorders: Yes Hx Family Cancer: Yes (Lung cancer) Medications and Allergies Anastrozole [Arimidex] 1 mg PO DAILY 04/06/15 [History] Aspirin Enteric Coated [Aspirin EC] 81 mg PO DAILY 04/06/15 [History] Cholecalciferol (Vitamin D3) [Vitamin D3] 2,000 unit PO DAILY 04/06/15 [History] GlipiZIDE XL (24 HR) [Glucotrol XL] 10 mg PO 0800 04/06/15 [History] Hydrochlorothiazide 25 mg PO DAILY 04/06/15 [History] Liraglutide [Victoza 2-Evans] 1.8 mg SQ DAILY 04/06/15 [History] Metformin [Glucophage] 1,000 mg PO BIDWM 04/06/15 [History] Simvastatin [Zocor] 40 mg PO HS 04/06/15 [History] Multivit/Iron/FA/K/Herb No.244 [Alive Women's Energy Mv Tablet] 1 each PO DAILY 05/25/17 [History] Metoprolol XL (24 HR) Succ [Toprol Xl] 25 mg PO DAILY 06/25/17 [History] 3 Allergy/AdvReac Type Severity Reaction Status Date / Time ibuprofen Allergy Unknown Gastrointestinal Verified 06/06/17 11:45 Upset Sulfa (Sulfonamide Allergy Unknown Gastrointestinal Verified 06/06/17 11:45 Antibiotics) Upset Constitutional: Present: anorexia, chills, fatigue, fever(s), weakness Cardiovascular: Absent: chest pain, palpitations Respiratory: Present: cough, dyspnea Gastrointestinal: Absent: abdominal pain, nausea, vomiting Genitourinary: Absent: dysuria, hematuria Musculoskeletal: Present: muscle weakness. Absent: numbness, tingling Integumentary: Absent: wounds Neurological: Absent: confusion, loss of vision Hematologic/Lymphatic: Absent: easy bleeding, lymphadenopathy Oncology - Exam - Constitutional Vitals: Temp Pulse Resp BP Pulse Ox 98.5 F 85 14 114/68 95 06/26/17 15:37 06/26/17 15:37 06/26/17 15:37 06/26/17 15:37 06/26/17 15:37 General appearance: cooperative, no acute distress, no febrile Exam: last fever recorded 24 hours ago - Head Head exam: Present: atraumatic - Respiratory Respiratory exam: Present: decreased breath sounds, CTAB - Cardiovascular Cardiovascular exam: Present: RRR, +S1, +S2 - GI/Abdominal GI/Abdominal exam: Present: normal bowel sounds, soft. Absent: tenderness - Extremities Exam Extremities exam: Absent: calf tenderness, pedal edema - Neurological Exam Neurological exam: Present: alert, oriented X3, strengths equal and symetr throughout. Absent: no focal deficits - Psychiatric Psychiatric exam: Present: normal affect, normal mood - Skin Skin exam: Present: pallor, warm Oncology - Results Labs: Short CBC 06/26/17 06/26/17 Range/Units 05:18 11:55 WBC 1.1 L D (4.3-11.1) K/mcL Hgb 6.1 L 6.3 L (11.5-15.4) g/dL Hct 17.1 L 17.7 L (35.3-44.9) % Plt Count 80 L (140-400) K/mcL Neutrophils # 0.1 L (1.6-8.9) K/mcL BMP 06/26/17 14:30 Sodium 139 Potassium 3.5 Chloride 107 Carbon Dioxide 27 BUN 11 Creatinine 0.88 Glucose 196 H Calcium 8.2 L Consult Discharge Plan - Plan Referrals: Anusha Wilcox MD [Primary Care Provider] - <Fortino Otero - Last Filed: 06/26/17 21:44> Date of Encounter: 06/26/17 - Data of Consult Requesting Physician: Yovany Middleton Primary Care Provider: Anusha Hoffman - Consult Narrative History of present illness: Ms. Heredia is a 72 year old female Oncology - Exam - Constitutional Vitals: Temp Pulse Resp BP Pulse Ox 98.5 F 85 14 114/68 95 06/26/17 15:37 06/26/17 15:37 06/26/17 15:37 06/26/17 15:37 06/26/17 15:37 Oncology - Results Labs: Short CBC 06/26/17 06/26/17 Range/Units 05:18 11:55 WBC 1.1 L D (4.3-11.1) K/mcL Hgb 6.1 L 6.3 L (11.5-15.4) g/dL Hct 17.1 L 17.7 L (35.3-44.9) % Plt Count 80 L (140-400) K/mcL Neutrophils # 0.1 L (1.6-8.9) K/mcL BMP 06/26/17 14:30 Sodium 139 Potassium 3.5 Chloride 107 Carbon Dioxide 27 BUN 11 Creatinine 0.88 Glucose 196 H Calcium 8.2 L - Attending Attestation I examined this patient and my medical decision-making was reviewed with the Advanced Practice Nurse. I agree with the documented findings, disposition and treatment plan as described except to the extent set forth below. She was admitted with neutropenia in setting of recently diagnosed therapy-associated AML. She has defervesced and cultures remain sterile. I have d/w Dr. Toro at [facility], and she has agreed to accept the patient in transfer to complete enrollment and possibly expedite treatment on the BEAT-AML study. Will hold on tranfusion for now.
--- NOTE | 2017-06-26 17:08 | Discharge Summary ---
Date of Encounter: 06/26/17 Time of Encounter: 11:00 - Discharge Diagnosis (1) Neutropenic fever Priority: Primary Status: Acute (2) Leukemia Priority: Primary Status: Chronic Qualifiers: Leukemia type: unspecified Leukemia Active/Remission status: without remission Qualified Code(s): C95.90 - Leukemia, unspecified not having achieved remission - Discharge Medications Home Medications: Anastrozole [Arimidex] 1 mg PO DAILY 04/06/15 [History] Aspirin Enteric Coated [Aspirin EC] 81 mg PO DAILY 04/06/15 [History] Cholecalciferol (Vitamin D3) [Vitamin D3] 2,000 unit PO DAILY 04/06/15 [History] GlipiZIDE XL (24 HR) [Glucotrol XL] 10 mg PO 0800 04/06/15 [History] Hydrochlorothiazide 25 mg PO DAILY 04/06/15 [History] Liraglutide [Victoza 2-Evans] 1.8 mg SQ DAILY 04/06/15 [History] Metformin [Glucophage] 1,000 mg PO BIDWM 04/06/15 [History] Simvastatin [Zocor] 40 mg PO HS 04/06/15 [History] Multivit/Iron/FA/K/Herb No.244 [Alive Women's Energy Mv Tablet] 1 each PO DAILY 05/25/17 [History] Metoprolol XL (24 HR) Succ [Toprol Xl] 25 mg PO DAILY 06/25/17 [History] Allergies/Adverse Reactions: 3 Allergy/AdvReac Type Severity Reaction Status Date / Time ibuprofen Allergy Unknown Gastrointestinal Verified 06/06/17 11:45 Upset Sulfa (Sulfonamide Allergy Unknown Gastrointestinal Verified 06/06/17 11:45 Antibiotics) Upset Procedures/tests Complete & Pending: Procedures Performed prior 72 hours Category Date Time Status EV echocardiogram Stat Y 06/26/17 00:18 Completed Date of admission: 06/25/17 20:49 Primary care physician: Anusha Hoffman Consults: 06/25/17 20:54 Consult to Pastoral Services [CONS] Routine Comment: 06/26/17 09:07 Consult to Oncology Hematology [CONS] Routine Consulting Provider: Tish Pascual Reason for Consult: aml and brest ca Call Completed: No - Patient Status Disposition: Transfer Critical Access Hosp Condition: Fair - Discharge Instructions Follow Up With: Anusha Wilcox MD [Primary Care Provider] - Forms: ED Satisfaction Letter Hospital course: Patient is a 72-year-old female with past medical history significant for AML, breast ca/endometrial ca s/p chemotherapy in October 2015, DM, HTN, HLD and CAD who presented to the ER on 06/25/17 for worsening generalized weakness, exertional dyspnea, and fever. She reported of having fevers for the last two days along with worsening generalized weakness in addition of having exertional dyspnea for the last few weeks. Upon arrival to the ER, she was noted to be pancytopenic and a Tmax of 100.8. She was started on broad spectrum IV abx in the ER. Patient was admitted to the medical floor for further management. Metabolic alkalosis/oncologist consulted and it was noted that patients bone marrow biopsy showed numerous blast consistent with acute leukemia. Patient of Dr. Llamas, referred to Dr. Toro at [facility] for AML management and further work up. She attended first appointment with Dr. Toro last week. She has recently been accepted as appropriate candidate for [facility] clinical trial study with Vero. Hematology/oncology with recommendations for transfer to the [facility]; Dr. Fannie Toro has accepted transfer. Will hold off on PRBC transfusion, pending her transfer to [facility] so as to not hold up her transfer. If there is a delay in transfer patient may receive Leukoreduced and Irradiated PRBC per recommendations. - Time Spent with Patient Total time spent providing and/or coordinating discharge services: Less than 30 minutes - Constitutional Vitals: Temp Pulse Resp BP Pulse Ox 98.5 F 85 14 114/68 95 06/26/17 15:37 06/26/17 15:37 06/26/17 15:37 06/26/17 15:37 06/26/17 15:37 General appearance: Present: cooperative, A&O X 3, pleasant, no acute distress, obese, answers questions appropriately - Respiratory Respiratory exam: Present: CTAB. Absent: accessory muscle use, rales, rhonchi, wheezes - Cardiovascular Cardiovascular exam: Present: RRR, +S1, +S2. Absent: diastolic murmur, gallop, rubs, systolic murmur
[2017-06-26] MEDS ORDERED: Aminoglycoside Consult 1 EACH MC ONE (18:34)
[2017-06-26] MEDS ORDERED: Insulin DETEMIR 100 UNIT/ML X5UNITS SQ SCH (21:00)
== END 2017-06-26 18:35 | disposition short-term general hospital (02) | DRG 809 ==
LOC: EMEROO 17:38 → 3ANU 17:38 → SUATTDRO 20:49
PROVIDERS: ADMIT Internal Medicine; ATTEND Hospitalist

== ENCOUNTER 2019-08-13 23:40 | Observation (INO) ==
[2019-08-14] MEDS ORDERED: *HR* Rivaroxaban 15 MG TABLET PO ONE (01:15)
[2019-08-14 01:46] LABS: Basophils # 0.1 K/mcL (0.0-0.2); Basophils % 0.5 %; Eosinophils # 0.3 K/mcL (0.0-0.6); Eosinophils % 2.3 %; Hematocrit 44.4 % (35.3-44.9); Hemoglobin 14.3 g/dL (11.5-15.4); Immature Granulocytes % 0.5 % (0-4); Lymphocytes # 2.3 K/mcL (0.6-4.6); Lymphocytes % 19.8 %; Mean Corpuscular HGB Conc 32.2 g/dL (31.6-35.5); Mean Corpuscular Volume 93.3 fL (83.0-100.0); Mean Platelet Volume 10.1 fL (9.4-12.4); Monocytes % 8.8 %; Neutrophils # 7.9 K/mcL (1.6-8.9); Platelet Count 155 K/mcL (140-400); Red Blood Count 4.76 M/mcL (3.82-4.97); Red Cell Distribution Width 13.4 % (11.5-14.5); Segmented Neutrophils % 68.1 %; White Blood Count 11.6 K/mcL (4.3-11.1)
[2019-08-14] MEDS ORDERED: Naloxone 0.4 MG/ML INJ IVP PRN (01:56)
[2019-08-14] MEDS ORDERED: D5% in Water 1,000 ML IVC PRN (02:02)
[2019-08-14] MEDS ORDERED: Dextrose Gel 15 GM/37.5 ML TUBE PO PRN ×2 (02:02)
[2019-08-14] MEDS ORDERED: *HR* Dextrose 50 % in Water (Syg) 50 ML SYRINGE IVP PRN (02:02)
[2019-08-14 02:12] LABS: Calcium 9.5 mg/dL (8.6-10.3); Potassium 4.7 mEq/L (3.5-5.1)
[2019-08-14] MEDS ORDERED: traZODone 50 MG TABLET PO SCH (02:15)
[2019-08-14 05:13] LABS: Basophils % 0.4 %; Eosinophils # 0.2 K/mcL (0.0-0.6); Eosinophils % 2.3 %; Hematocrit 43.9 % (35.3-44.9); Hemoglobin 14.5 g/dL (11.5-15.4); Immature Granulocytes % 0.4 % (0-4); Lymphocytes # 2.5 K/mcL (0.6-4.6); Lymphocytes % 26.6 %; Mean Corpuscular Hemoglobin 30.3 pg (28.0-33.3); Mean Corpuscular Volume 91.8 fL (83.0-100.0); Mean Platelet Volume 10.5 fL (9.4-12.4); Monocytes # 0.8 K/mcL (0.0-1.3); Monocytes % 8.6 %; Neutrophils # 5.7 K/mcL (1.6-8.9); Platelet Count 162 K/mcL (140-400); Red Blood Count 4.78 M/mcL (3.82-4.97); Red Cell Distribution Width 13.5 % (11.5-14.5); Segmented Neutrophils % 61.7 %; White Blood Count 9.3 K/mcL (4.3-11.1)
[2019-08-14 05:18] LABS: INR 1.4
[2019-08-14 05:35] LABS: Albumin 3.8 g/dL (3.5-5.7); Albumin/Globulin Ratio 1.4 (1.1-2.2); Bilirubin,Total 0.5 mg/dL (0.3-1.0); Calcium 9.3 mg/dL (8.6-10.3); Chol/HDL Ratio 8.3 (0-4.9); Globulin 2.8 g/dL (2.4-3.5); Magnesium 1.9 mg/dL (1.6-2.6); Phosphorous 3.7 mg/dL (2.7-4.5); Potassium 4.2 mEq/L (3.5-5.1); Total Protein 6.6 g/dL (6.4-8.9)
[2019-08-14] MEDS: Insulin LISPRO 300 UNITS/3 ML VIAL SQ SCH ×2 (07:48→12:45)
[2019-08-14 08:32] LABS: Estimated Average Glucose 194 mg/dl
[2019-08-14] MEDS ORDERED: Metoprolol XL (24 HR) Succ 25 MG TAB.ER.24H PO SCH (09:00)
[2019-08-14] MEDS ORDERED: amLODIPine 5 MG TABLET PO SCH (09:00)
[2019-08-14 10:51] VITALS: BP 113/67
[2019-08-14] MEDS ORDERED: *HR* Rivaroxaban 15 MG TABLET PO SCH (12:00)
== END 2019-08-14 17:59 | disposition home or self-care (01) ==
LOC: EMEROOARM 23:40 → 3ANU 23:40 → SUATTDRO 08-14 02:14 → 3ANU 08-14 02:32
PROVIDERS: ADMIT Internal Medicine; ATTEND Internal Medicine

== ENCOUNTER 2020-03-02 15:20 | Inpatient (IN) ==
[2020-03-02] MEDS ORDERED: Isovue-370 500 ML BOTTLE IVP ONE (15:45)
[2020-03-02 16:39] LABS: Basophils # 0.1 K/mcL (0.0-0.2); Basophils % 0.5 %; Eosinophils # 0.1 K/mcL (0.0-0.6); Eosinophils % 0.8 %; Immature Granulocytes % 0.3 % (0-4); Lymphocytes # 2.5 K/mcL (0.6-4.6); Lymphocytes % 19.2 %; Mean Corpuscular HGB Conc 33.3 g/dL (31.6-35.5); Mean Corpuscular Hemoglobin 30.5 pg (28.0-33.3); Mean Corpuscular Volume 91.4 fL (83.0-100.0); Mean Platelet Volume 10.1 fL (9.4-12.4); Monocytes # 1.1 K/mcL (0.0-1.3); Neutrophils # 9.4 K/mcL (1.6-8.9); Platelet Count 261 K/mcL (140-400); Red Blood Count 5.25 M/mcL (3.82-4.97); Red Cell Distribution Width 15.2 % (11.5-14.5); Segmented Neutrophils % 71.2 %; White Blood Count 13.2 K/mcL (4.3-11.1)
[2020-03-02 17:20] LABS: Alanine Aminotransferase 338 Units/L (7-52); Albumin 4.3 g/dL (3.5-5.7); Albumin/Globulin Ratio 1.4 (1.1-2.2); Alkaline Phosphatase 149 Units/L (34-104); Aspartate Amino Transferase 370 Units/L (13-39); BUN/Creatinine Ratio 12 (6-26); Bilirubin,Indirect 1.2 mg/dL (0.0-1.0); Bilirubin,Total 2.2 mg/dL (0.3-1.0); Blood Urea Nitrogen 12 mg/dL (8-23); Calcium 9.5 mg/dL (8.6-10.3); Carbon Dioxide 26 mEq/L (23-29); Chloride 103 mEq/L (98-107); Globulin 3.1 g/dL (2.4-3.5); Glucose 223 mg/dL (70-105); Lipase > 1800 Units/L (11-82); Osmolality,Calculated 291 (280-300); Potassium 4.1 mEq/L (3.5-5.1); Sodium 137 mEq/L (136-145); Total Protein 7.4 g/dL (6.4-8.9); Troponin I < 0.03 ng/mL (< 0.04); eGFR For African Americans > 60 (> 60); eGFR For Non-African Americans 53 (> 60)
[2020-03-02 17:36] LABS: Bacteria,Urine Few per hpf (None-Few); Bilirubin,Urine Negative (Negative); Blood,Urine Negative (Negative); Clarity,Urine Clear (Clear); Color,Urine Light-Yellow (Yellow); Glucose,Urine (UA) 500 mg/dL (Normal); Ketones,Urine Negative (Negative); Leukocyte Esterase,Urine Trace (Negative); Nitrite,Urine Negative (Negative); Protein,Urine Trace mg/dL (Neg-Trace); RBC,Urine 0-3 per hpf (0-3); Specific Gravity,Urine 1.007 (1.010-1.025); Urobilinogen,Urine Normal (Normal); WBC,Urine 0-3 per hpf (0-3)
[2020-03-02] MEDS ORDERED: Naloxone 0.4 MG/ML INJ IVP PRN (18:25)
[2020-03-02] MEDS: traZODone 50 MG TABLET PO SCH (21:33)
[2020-03-02] MEDS: 0.9 % Sodium Chloride 1,000 ML IVC SCH (21:34)
[2020-03-02] MEDS ORDERED: *HR* HYDROmorphone (PF) 1 MG/ML SYRINGE IVP ONE (22:00)
[2020-03-03 05:15] LABS: Basophils # 0.1 K/mcL (0.0-0.2); Basophils % 0.4 %; Eosinophils # 0.1 K/mcL (0.0-0.6); Eosinophils % 0.9 %; Hematocrit 42.5 % (35.3-44.9); Immature Granulocytes % 0.2 % (0-4); Lymphocytes # 2.8 K/mcL (0.6-4.6); Lymphocytes % 20.5 %; Mean Corpuscular HGB Conc 32.9 g/dL (31.6-35.5); Mean Corpuscular Hemoglobin 29.6 pg (28.0-33.3); Mean Corpuscular Volume 89.9 fL (83.0-100.0); Mean Platelet Volume 9.8 fL (9.4-12.4); Monocytes # 1.1 K/mcL (0.0-1.3); Monocytes % 7.8 %; Neutrophils # 9.6 K/mcL (1.6-8.9); Platelet Count 245 K/mcL (140-400); Red Blood Count 4.73 M/mcL (3.82-4.97); Red Cell Distribution Width 15.1 % (11.5-14.5); Segmented Neutrophils % 70.2 %; White Blood Count 13.7 K/mcL (4.3-11.1)
[2020-03-03 05:31] LABS: BUN/Creatinine Ratio 12 (6-26); Blood Urea Nitrogen 10 mg/dL (8-23); Calcium 8.6 mg/dL (8.6-10.3); Carbon Dioxide 22 mEq/L (23-29); Chloride 108 mEq/L (98-107); Glucose 173 mg/dL (70-105); Osmolality,Calculated 285 (280-300); Potassium 3.8 mEq/L (3.5-5.1); Sodium 136 mEq/L (136-145); eGFR For African Americans > 60 (> 60); eGFR For Non-African Americans > 60 (> 60)
[2020-03-03] MEDS: Metoprolol XL (24 HR) Succ 25 MG TAB.ER.24H PO SCH (08:49)
[2020-03-03] MEDS ORDERED: amLODIPine 5 MG TABLET PO SCH (09:00)
[2020-03-03] MEDS ORDERED: Cholecalciferol (D-3) 1,000 UNIT (25MCG) TABLET PO SCH (09:00)
[2020-03-03] MEDS: 0.9 % Sodium Chloride 1,000 ML IVC SCH (12:27)
[2020-03-03] MEDS: traZODone 50 MG TABLET PO SCH (20:54)
[2020-03-04 05:47] LABS: INR 1.3; Prothrombin Time 15.2 Seconds (9.4-12.1)
[2020-03-04 05:57] LABS: Basophils # 0.1 K/mcL (0.0-0.2); Basophils % 0.3 %; Eosinophils # 0.1 K/mcL (0.0-0.6); Eosinophils % 0.5 %; Hematocrit 43.6 % (35.3-44.9); Hemoglobin 14.1 g/dL (11.5-15.4); Immature Granulocytes % 0.3 % (0-4); Lymphocytes # 3.6 K/mcL (0.6-4.6); Lymphocytes % 23.4 %; Mean Corpuscular HGB Conc 32.3 g/dL (31.6-35.5); Mean Corpuscular Volume 92.8 fL (83.0-100.0); Mean Platelet Volume 10.6 fL (9.4-12.4); Monocytes # 1.3 K/mcL (0.0-1.3); Monocytes % 8.5 %; Neutrophils # 10.3 K/mcL (1.6-8.9); Platelet Count 214 K/mcL (140-400); Red Cell Distribution Width 15.3 % (11.5-14.5); White Blood Count 15.4 K/mcL (4.3-11.1)
[2020-03-04 06:00] LABS: BUN/Creatinine Ratio 13 (6-26); Blood Urea Nitrogen 10 mg/dL (8-23); Calcium 8.8 mg/dL (8.6-10.3); Carbon Dioxide 19 mEq/L (23-29); Chloride 107 mEq/L (98-107); Glucose 140 mg/dL (70-105); Lipase 128 Units/L (11-82); Osmolality,Calculated 281 (280-300); Potassium 3.9 mEq/L (3.5-5.1); Sodium 135 mEq/L (136-145); eGFR For African Americans > 60 (> 60); eGFR For Non-African Americans > 60 (> 60)
[2020-03-04 06:38] LABS: Heparin anti-factor XA LMWH 0.28 IU/mL (0.50-1.10)
[2020-03-04 09:57] LABS: Adenovirus Not Detected (Not Detect); Bordetella Pertussis Not Detected (Not Detect); Chlamydophila pneumoniae Not Detected (Not Detect); Coronavirus 229E Not Detected (Not Detect); Coronavirus HKU1 Not Detected (Not Detect); Coronavirus NL63 Not Detected (Not Detect); Coronavirus OC43 Not Detected (Not Detect); Human Metapneumovirus Not Detected (Not Detect); Human Rhinovirus/Enterovirus Not Detected (Not Detect); Influenza A Subtype 2009 H1 Not Detected (Not Detect); Influenza B Not Detected (Not Detect); Mycoplasma pneumoniae Not Detected (Not Detect); Parainfluenza Virus 1 Not Detected (Not Detect); Parainfluenza Virus 2 Not Detected (Not Detect); Parainfluenza Virus 3 Not Detected (Not Detect); Parainfluenza Virus 4 Not Detected (Not Detect); Respiratory Syncytial Virus Not Detected (Not Detect); SARS-CoV-2 Not Detected (Not Detect)
[2020-03-04] MEDS: Metoprolol XL (24 HR) Succ 25 MG TAB.ER.24H PO SCH (10:38)
[2020-03-04] MEDS ORDERED: *HR* FentaNYL (PF) 100 MCG/2 ML VIAL ONE ×2 (11:46→13:28)
[2020-03-04] MEDS ORDERED: *HR* Midazolam HCl 2 MG/2 ML VIAL ONE (11:47)
[2020-03-04] MEDS ORDERED: *HR* Propofol 200 MG/20 ML VIAL IVP ONE (11:47)
[2020-03-04] MEDS ORDERED: *HR* Succinylcholine 200 MG/10 ML VIAL IVP ONE (11:52)
[2020-03-04] MEDS ORDERED: *HR* Rocuronium Bromide 50 MG/5 ML VIAL ONE (11:52)
[2020-03-04] MEDS ORDERED: Lidocaine -MPF 2% 2 ML VIAL ONE ×2 (11:53→12:14)
[2020-03-04] MEDS ORDERED: Ondansetron 4 MG/2 ML VIAL IVP PRN ×2 (12:15→16:14)
[2020-03-04] MEDS ORDERED: *HR* OxyCODONE Immed Rel 5 MG TABLET PO PRN (12:15)
[2020-03-04] MEDS ORDERED: *HR* Promethazine 25 MG/ML VIAL IVP PRN (12:15)
[2020-03-04] MEDS ORDERED: *HR* HYDROmorphone PF 0.5 MG/0.5 ML SYRINGE IVP PRN (12:15)
[2020-03-04] MEDS ORDERED: Isovue-300 50ML VIAL ONE (12:21)
[2020-03-04] MEDS ORDERED: Acetaminophen IV 1,000 MG/100 ML BAG ONE (12:46)
[2020-03-04] MEDS ORDERED: *HR* Labetalol 20 MG/4 ML SYRINGE IVP ONE (13:32)
[2020-03-04] MEDS ORDERED: Naloxone 0.4 MG/ML INJ IVP PRN (16:14)
[2020-03-04] MEDS ORDERED: traZODone 50 MG TABLET PO SCH (21:00)
[2020-03-05 01:25] LABS: Basophils % 0.1 %; Hematocrit 39.5 % (35.3-44.9); Hemoglobin 13.1 g/dL (11.5-15.4); Immature Granulocytes % 0.3 % (0-4); Lymphocytes # 2.1 K/mcL (0.6-4.6); Lymphocytes % 14.6 %; Mean Corpuscular HGB Conc 33.2 g/dL (31.6-35.5); Mean Corpuscular Hemoglobin 30.2 pg (28.0-33.3); Mean Platelet Volume 10.3 fL (9.4-12.4); Monocytes % 7.3 %; Platelet Count 215 K/mcL (140-400); Red Blood Count 4.34 M/mcL (3.82-4.97); Red Cell Distribution Width 14.9 % (11.5-14.5); Segmented Neutrophils % 77.7 %; White Blood Count 14.2 K/mcL (4.3-11.1)
[2020-03-05 01:46] LABS: BUN/Creatinine Ratio 17 (6-26); Blood Urea Nitrogen 15 mg/dL (8-23); Calcium 8.7 mg/dL (8.6-10.3); Carbon Dioxide 19 mEq/L (23-29); Chloride 106 mEq/L (98-107); Glucose 202 mg/dL (70-105); Osmolality,Calculated 285 (280-300); Potassium 4.5 mEq/L (3.5-5.1); Sodium 134 mEq/L (136-145); eGFR For African Americans > 60 (> 60); eGFR For Non-African Americans > 60 (> 60)
[2020-03-05 08:05] LABS: Albumin 3.5 g/dL (3.5-5.7); Albumin/Globulin Ratio 1.2 (1.1-2.2); Bilirubin,Direct 0.3 mg/dL (0.0-0.2); Bilirubin,Indirect 0.7 mg/dL (0.0-1.0); Globulin 2.9 g/dL (2.4-3.5); Total Protein 6.4 g/dL (6.4-8.9)
[2020-03-05] MEDS ORDERED: amLODIPine 5 MG TABLET PO SCH (09:00)
[2020-03-05] MEDS ORDERED: Cholecalciferol (D-3) 1,000 UNIT (25MCG) TABLET PO SCH (09:00)
[2020-03-05] MEDS ORDERED: Metoprolol XL (24 HR) Succ 25 MG TAB.ER.24H PO SCH (09:00)
[2020-03-05 10:28] VITALS: BP 160/68
[2020-03-05] MEDS ORDERED: FLU Vac QV 20-21 (6Month+)/PF 0.5 ML SYRINGE IM ONE (11:47)
== END 2020-03-05 13:30 | disposition home or self-care (01) | DRG 417 ==
LOC: EMEROOARM 15:20 → 3ANU 15:20 → SUATTDRO 18:15 → 3ANU 21:15
PROVIDERS: ADMIT Internal Medicine; ATTEND Family Medicine

== ENCOUNTER 2021-09-04 23:36 | Observation (INO) ==
[2021-09-04] MEDS ORDERED: *HR* Metoprolol 5 MG/5 ML VIAL IVP ONE (23:48)
[2021-09-04] MEDS ORDERED: Isovue-370 500 ML BOTTLE IVP ONE (23:48)
[2021-09-04] MEDS ORDERED: Aspirin 81 MG TAB.CHEW PO STA (23:49)
[2021-09-05 00:26] LABS: Basophils # 0.1 K/mcL (0.0-0.2); Basophils % 0.7 %; Eosinophils # 0.4 K/mcL (0.0-0.6); Eosinophils % 2.6 %; Hematocrit 46.7 % (35.3-44.9); Hemoglobin 16.4 g/dL (11.5-15.4); Immature Granulocytes % 0.2 % (0-4); Lymphocytes # 7.3 K/mcL (0.6-4.6); Lymphocytes % 50.6 %; Mean Corpuscular HGB Conc 35.1 g/dL (31.6-35.5); Mean Corpuscular Hemoglobin 31.5 pg (28.0-33.3); Mean Corpuscular Volume 89.6 fL (83.0-100.0); Mean Platelet Volume 11.8 fL (9.4-12.4); Monocytes # 1.3 K/mcL (0.0-1.3); Monocytes % 8.7 %; Neutrophils # 5.4 K/mcL (1.6-8.9); Platelet Count 236 K/mcL (140-400); Red Blood Count 5.21 M/mcL (3.82-4.97); Red Cell Distribution Width 14.4 % (11.5-14.5); Segmented Neutrophils % 37.2 %; White Blood Count 14.4 K/mcL (4.3-11.1)
[2021-09-05] MEDS: 0.9 % Sodium Chloride 1,000 ML IVC SCH ×2 (00:27→11:32)
[2021-09-05 00:30] LABS: INR 1.5; Prothrombin Time 16.4 Seconds (9.4-12.1)
[2021-09-05 00:33] LABS: Activated Partial Thrombo Time 46.5 Seconds (26.0-36.0)
[2021-09-05 00:51] LABS: Alanine Aminotransferase 44 Units/L (7-52); Albumin 3.9 g/dL (3.5-5.7); Albumin/Globulin Ratio 1.3 (1.1-2.2); Alkaline Phosphatase 84 Units/L (34-104); Aspartate Amino Transferase 43 Units/L (13-39); BUN/Creatinine Ratio 12 (6-26); Bilirubin,Indirect 0.8 mg/dL (0.0-1.0); Bilirubin,Total 0.8 mg/dL (0.3-1.0); Blood Urea Nitrogen 13 mg/dL (8-23); Calcium 9.3 mg/dL (8.6-10.3); Carbon Dioxide 24 mEq/L (23-29); Chloride 103 mEq/L (98-107); Globulin 3.1 g/dL (2.4-3.5); Glucose 260 mg/dL (70-105); Lipase 45 Units/L (11-82); Osmolality,Calculated 293 (280-300); Sodium 137 mEq/L (136-145); Troponin I < 0.03 ng/mL (< 0.04); eGFR For African Americans > 60 (> 60); eGFR For Non-African Americans 50 (> 60)
[2021-09-05] MEDS ORDERED: *HR* Metoprolol 5 MG/5 ML VIAL IVP ONE (01:20)
[2021-09-05 01:23] LABS: Bacteria,Urine Few per hpf (None-Few); Bilirubin,Urine Negative (Negative); Blood,Urine Negative (Negative); Clarity,Urine Clear (Clear); Color,Urine Colorless (Yellow); Glucose,Urine (UA) >=1000 mg/dL (Normal); Ketones,Urine Negative (Negative); Leukocyte Esterase,Urine Negative (Negative); Nitrite,Urine Negative (Negative); PH,Urine 6.5 pH Units (5.0-8.0); Protein,Urine 30 mg/dL (Neg-Trace); RBC,Urine 0-3 per hpf (0-3); Specific Gravity,Urine 1.014 (1.010-1.025); Squamous Epithelial Cell,Urine Few per hpf (None-Few); Urobilinogen,Urine Normal (Normal)
[2021-09-05] MEDS ORDERED: DilTIAZem 50 MG/50 ML IV.SOLN IVC SCH (02:15)
[2021-09-05] MEDS ORDERED: Naloxone 0.4 MG/ML INJ IVP PRN (02:36)
[2021-09-05] MEDS ORDERED: Ondansetron 4 MG/2 ML VIAL IVP PRN (02:36)
[2021-09-05] MEDS ORDERED: *HR* Dextrose 50 % in Water (Syg) 50 ML SYRINGE IVP PRN (02:42)
[2021-09-05] MEDS ORDERED: D5% in Water 1,000 ML IVC PRN (02:42)
[2021-09-05] MEDS ORDERED: Dextrose 4 GM Chewable Tablets PO PRN ×2 (02:42)
[2021-09-05] MEDS ORDERED: Perflutren Lipid Microsphere 1.3 ML in 0.9 % Sodium Chloride 8.7 ML IVP PRN (02:43)
[2021-09-05] MEDS: Insulin LISPRO 300 UNITS/3 ML VIAL SUBQ SCH ×4 (04:44→17:42)
[2021-09-05 06:38] LABS: Chol/HDL Ratio 4.1 (0-4.9); Magnesium 1.6 mg/dL (1.6-2.6)
[2021-09-05 06:52] LABS: Thyroid Stimulating Hormone 3.821 mcIU/mL (0.340-5.600)
[2021-09-05] MEDS: cefTRIAXone 1,000 MG in 0.9 % Sodium Chloride 10 ML IVP SCH (09:06)
[2021-09-05 09:20] LABS: Estimated Average Glucose 203 mg/dl; Hemoglobin A1C 8.7 %
[2021-09-05] MEDS ORDERED: Metoprolol XL (24 HR) Succ 25 MG TAB.ER.24H PO SCH (10:15)
[2021-09-05] MEDS ORDERED: *HR* Heparin 5,000 UNIT/ML VIAL IVP ONE (10:17)
[2021-09-05] MEDS ORDERED: *HR* Heparin 5,000 UNIT/ML VIAL IVP PRN ×2 (10:17)
[2021-09-05] MEDS ORDERED: Heparin 25,000UNIT/250ML 1/2NS 25,000 UNIT/250 ML IV.SOLN IVC SCH ×2 (10:30)
[2021-09-05 12:33] LABS: Hematocrit 45.4 % (35.3-44.9); Mean Corpuscular Hemoglobin 30.3 pg (28.0-33.3); Mean Corpuscular Volume 91.7 fL (83.0-100.0); Mean Platelet Volume 11.3 fL (9.4-12.4); Platelet Count 204 K/mcL (140-400); Red Blood Count 4.95 M/mcL (3.82-4.97); Red Cell Distribution Width 14.7 % (11.5-14.5); White Blood Count 12.6 K/mcL (4.3-11.1)
[2021-09-05 12:45] LABS: INR 1.3
[2021-09-05 12:46] LABS: Heparin anti-factor XA UFH 0.32 IU/mL (0.30-0.70)
[2021-09-05] MEDS: Metoprolol XL (24 HR) Succ 25 MG TAB.ER.24H PO SCH (19:51)
[2021-09-06 03:47] VITALS: O2SAT 96
[2021-09-06 05:34] LABS: Basophils # 0.1 K/mcL (0.0-0.2); Basophils % 0.7 %; Eosinophils # 0.4 K/mcL (0.0-0.6); Eosinophils % 2.7 %; Hematocrit 44.7 % (35.3-44.9); Hemoglobin 14.9 g/dL (11.5-15.4); Immature Granulocytes % 0.3 % (0-4); Lymphocytes # 8.2 K/mcL (0.6-4.6); Lymphocytes % 51.3 %; Mean Corpuscular HGB Conc 33.3 g/dL (31.6-35.5); Mean Corpuscular Hemoglobin 30.3 pg (28.0-33.3); Mean Corpuscular Volume 90.9 fL (83.0-100.0); Mean Platelet Volume 12.5 fL (9.4-12.4); Monocytes # 1.5 K/mcL (0.0-1.3); Monocytes % 9.2 %; Neutrophils # 5.7 K/mcL (1.6-8.9); Platelet Count 188 K/mcL (140-400); Red Blood Count 4.92 M/mcL (3.82-4.97); Red Cell Distribution Width 14.6 % (11.5-14.5); Segmented Neutrophils % 35.8 %
[2021-09-06 05:51] LABS: BUN/Creatinine Ratio 12 (6-26); Blood Urea Nitrogen 13 mg/dL (8-23); Calcium 8.4 mg/dL (8.6-10.3); Carbon Dioxide 22 mEq/L (23-29); Chloride 106 mEq/L (98-107); Glucose 182 mg/dL (70-105); Osmolality,Calculated 291 (280-300); Potassium 3.6 mEq/L (3.5-5.1); Sodium 138 mEq/L (136-145); eGFR For African Americans > 60 (> 60); eGFR For Non-African Americans 50 (> 60)
[2021-09-06 06:08] LABS: Platelet Estimate Normal (Normal); Reactive Lymphocytes Present (Not Present)
[2021-09-06] MEDS: cefTRIAXone 1,000 MG in 0.9 % Sodium Chloride 10 ML IVP SCH (08:40)
[2021-09-06] MEDS: Metoprolol XL (24 HR) Succ 25 MG TAB.ER.24H PO SCH (08:41)
[2021-09-06] MEDS: Insulin LISPRO 300 UNITS/3 ML VIAL SUBQ SCH ×2 (08:41→12:58)
[2021-09-06] MEDS: 0.9 % Sodium Chloride 1,000 ML IVC SCH (08:43)
[2021-09-06] MEDS ORDERED: Metoprolol XL (24 HR) Succ 25 MG TAB.ER.24H PO SCH (09:00)
[2021-09-06] MEDS ORDERED: Aspirin Enteric Coated 81 MG Tablet PO SCH (09:00)
[2021-09-06] MEDS ORDERED: amLODIPine 5 MG TABLET PO SCH (09:00)
[2021-09-06] MEDS ORDERED: Regadenoson 0.4 MG/5 ML SYRINGE IVP ONE (09:24)
[2021-09-06 15:36] VITALS: BP 170/71; PULSE 75; TEMP 98
[2021-09-06] MEDS ORDERED: *HR* Rivaroxaban 10 MG TABLET PO ONE (15:56)
== END 2021-09-06 17:00 | disposition home or self-care (01) ==
LOC: EMEROOARM 23:36 → 2ANU 23:36 → SUATTDRO 09-05 02:31 → 2ANU 09-05 03:15
PROVIDERS: ADMIT Student in an Organized Health Care Education/Training Program; ATTEND Internal Medicine